=== PATIENT | female | born 1970 | race Caucasian/White ===

== ENCOUNTER 2016-05-24 10:52 | Emergency (ER) | payer BC ==
[~2016-05-24] VITALS: Ht 157.5 cm; Wt 61.2 kg
[2016-05-24] MEDS ORDERED: IBUPROFEN 400 MG TABLET ONE ×2 (10:59→11:05)
[2016-05-24] MEDS ORDERED: IBUPROFEN 400 MG TABLET PO ONE (11:00)
[2016-05-24 12:13] VITALS: BP 128/80
== END 2016-05-24 12:15 | disposition home or self-care (01) ==
LOC: ER 10:55
DX: S16.1XXA Strain of muscle, fascia and tendon at neck level, initial encounter (principal); S60.222A Contusion of left hand, initial encounter; S60.221A Contusion of right hand, initial encounter; Z88.6 Allergy status to analgesic agent; V49.50XA Passenger injured in collision with unspecified motor vehicles in traffic accident, initial encounter; Y93.89 Activity, other specified; Y92.413 State road as the place of occurrence of the external cause; Y99.8 Other external cause status
CPT/HCPCS: 70450; 72125; 73130 ×2; 99284; A4606; Z7610